=== PATIENT | male | born 1975 | race Caucasian/White ===

== ENCOUNTER → 2017-11-14 | Outpatient (CLI) | payer BC ==
[~2017-11-14] MED LIST: APPLE CIDER VINEGAR PO; LISINOPRIL10 MG PO; MELATONIN5 MG/15 ML PO; MOTRIN600 MG PO; NORCO 5/3251 TABLET PO; PERCOCET 5/31 TABLET PO; PRILOSEC20 MG PO; ZOLOFT50 MG PO
== END | disposition home or self-care (01) ==
LOC: CDC 09:34
DX: Z01.810 Encounter for preprocedural cardiovascular examination (principal); I10 Essential (primary) hypertension
CPT/HCPCS: 93000

== ENCOUNTER 2017-11-16 11:02 | Day surgery (SDC) | payer BC ==
[~2017-11-16] VITALS: Ht 190.5 cm; Wt 113.0 kg
[~2017-11-16 11:02] MED LIST changes: -APPLE CIDER VINEGAR PO; -MOTRIN600 MG PO; -NORCO 5/3251 TABLET PO; -PERCOCET 5/31 TABLET PO
[2017-11-16 11:23] VITALS: BP 128/77
[2017-11-16 12:16] VITALS: BP 140/75
[2017-11-16] MEDS ORDERED: PERCOCET 5/31 TABLET PO (14:15)
[2017-11-16] MEDS ORDERED: MOTRIN600 MG PO (14:18)
[2017-11-16 15:00] VITALS: BP 132/88
[2017-11-16 16:00] VITALS: BP 128/88
[2017-11-16 16:38] VITALS: BP 139/76
== END 2017-11-16 16:55 | disposition home or self-care (01) ==
LOC: SDC
PROC: 0YU50JZ Supplement Right Inguinal Region with Synthetic Substitute, Open Approach (ICD-10-PCS; principal; 2017-11-16)
DX: K40.20 Bilateral inguinal hernia, without obstruction or gangrene, not specified as recurrent (principal); I10 Essential (primary) hypertension; F41.1 Generalized anxiety disorder; K21.0 Gastro-esophageal reflux disease with esophagitis; F17.220 Nicotine dependence, chewing tobacco, uncomplicated
CPT/HCPCS: C1781; J0131; J0690; J1100; J2250; J2405; J3010; S0020

== ENCOUNTER 2017-11-30 13:36 | Day surgery (SDC) | payer BC ==
[~2017-11-30] VITALS: Ht 190.5 cm; Wt 113.0 kg
[~2017-11-30 13:36] MED LIST changes: +APPLE CIDER VINEGAR PO; +MOTRIN600 MG PO; +PERCOCET 5/31 TABLET PO
[2017-11-30 13:52] VITALS: BP 136/90
[2017-11-30] MEDS ORDERED: NORCO 5/3251 TABLET PO (17:59)
[2017-11-30] MEDS ORDERED: MOTRIN600 MG PO (17:59)
[2017-11-30 18:34] VITALS: BP 128/87
[2017-11-30 20:12] VITALS: BP 131/74
== END 2017-11-30 20:12 | disposition home or self-care (01) ==
LOC: SDC 13:36
PROC: 0YU60JZ Supplement Left Inguinal Region with Synthetic Substitute, Open Approach (ICD-10-PCS; principal; 2017-11-30)
DX: K40.90 Unilateral inguinal hernia, without obstruction or gangrene, not specified as recurrent (principal); M19.90 Unspecified osteoarthritis, unspecified site; I10 Essential (primary) hypertension; F41.1 Generalized anxiety disorder; K21.9 Gastro-esophageal reflux disease without esophagitis; F17.220 Nicotine dependence, chewing tobacco, uncomplicated; Z83.3 Family history of diabetes mellitus; Z82.49 Family history of ischemic heart disease and other diseases of the circulatory system; Z80.9 Family history of malignant neoplasm, unspecified
CPT/HCPCS: C1781; J0131; J0690; J1100; J1170; J2250; J2405; J3010; S0020